=== PATIENT | female | born 1965 | race Hispanic/Latino ===

== ENCOUNTER 2017-01-03 15:10 | Emergency (ER) | payer OTHER ==
[2017-01-03 15:26] VITALS: BP 126/81; PULSE 81; RESP 20; TEMP 98.1; O2SAT 99
[2017-01-03] MEDS ORDERED: Albuterol-Ipratrop 3 mg / 0.5 (3 ml) UD INH STA ×2 (15:48)
[2017-01-03] MEDS ORDERED: Albuterol-Ipratrop 3 mg / 0.5 (3 ml) UD ONE (15:57)
--- NOTE | 2017-01-03 16:34 | RAD ---
HISTORY: cough, wheezing COMPARISON: No prior. TECHNIQUE: Chest PA and lateral FINDINGS: LUNGS: No active pulmonary disease. PLEURA: No significant pleural effusion identified. No pneumothorax apparent. CARDIOVASCULAR: Normal. OSSEOUS STRUCTURES: Dextroscoliosis of the thoracic spine is noted. VISUALIZED UPPER ABDOMEN: Normal. OTHER FINDINGS: None. IMPRESSION: No evidence of pneumonia.
--- NOTE | 2017-01-03 17:04 | ED PDOC ---
HPI: SOB/CHF/COPD Time Seen by Provider: 01/03/17 15:39 Chief Complaint (Nursing): Shortness Of Breath Chief Complaint (Provider): Cough, dry without fever History Per: Patient History/Exam Limitations: no limitations Onset/Duration Of Symptoms: Days Current Symptoms Are (Timing): Still Present Context: No chest pain Current Respiratory Medications: None Additional Complaint(s): Pt states she had similar in the past and was given antibiotics and steroids. Pt reports back side effects from the steroids. Past Medical History Reviewed: Historical Data, Nursing Documentation, Vital Signs Vital Signs: Last Vital Signs Temp 98.1 F 01/03/17 15:21 Pulse 81 01/03/17 15:21 Resp 20 01/03/17 15:44 BP 126/81 01/03/17 15:21 Pulse Ox 99 01/03/17 15:21 - Medical History PMH: Anxiety, Bronchitis, Depression - Surgical History Surgical History: No Surg Hx - Family History Family History: States: No Known Family Hx - Living Arrangements Living Arrangements: With Family - Social History Current smoker - smoking cessation education provided: No Ex-Smoker (has not smoked in the last 12 months): Yes - Immunization History Hx Tetanus Toxoid Vaccination: No Hx Influenza Vaccination: No Hx Pneumococcal Vaccination: No - Home Medications Home Medications: Ambulatory Orders Medication Instructions Recorded Albuterol 0.083% [Albuterol 0.083% 2.5 mg IH QID PRN #20 01/03/17 Inhal Joaquina (2.5 mg/3 ml) UD] Azithromycin 250 mg PO DAILY #6 tab 01/03/17 - Allergies Allergies/Adverse Reactions: Allergies Allergy/AdvReac Type Severity Reaction Status Date / Time No Known Allergies Allergy Verified 01/03/17 15:16 Review of Systems ROS Statement: Except As Marked, All Systems Reviewed And Found Negative Constitutional: Negative for: Fever, Chills Respiratory: Positive for: Cough, Shortness of Breath (When coughing ) Physical Exam - Reviewed Nursing Documentation Reviewed: Yes Vital Signs Reviewed: Yes - Physical Exam Appears: Positive for: Well, Non-toxic, No Acute Distress Head Exam: Positive for: ATRAUMATIC, NORMAL INSPECTION, NORMOCEPHALIC Skin: Positive for: Normal Color, Warm, DRY Eye Exam: Positive for: Normal appearance ENT: Positive for: Normal ENT Inspection Neck: Positive for: Normal, Painless ROM Cardiovascular/Chest: Positive for: Regular Rate, Rhythm Respiratory: Positive for: Wheezing (Diffuse ). Negative for: Normal Breath Sounds, Accessory Muscle Use, Respiratory Distress Gastrointestinal/Abdominal: Positive for: Normal Exam, Bowel Sounds, Soft Back: Positive for: Normal Inspection Extremity: Positive for: Normal ROM Neurologic/Psych: Positive for: Alert, Oriented - ECG O2 Sat by Pulse Oximetry: 99 Medical Decision Making Medical Decision Making: CXR - Normal. Disposition - Clinical Impression Clinical Impression: Acute bronchitis - Patient ED Disposition Is Patient to be Admitted: No Counseled Patient/Family Regarding: Diagnosis, Need For Followup, Rx Given - Disposition Referrals: [facility] [Outside] Disposition: Routine/Home Disposition Time: 17:04 Condition: GOOD Prescriptions: Albuterol 0.083% [Albuterol 0.083% Inhal Joaquina (2.5 mg/3 ml) UD] 2.5 mg IH QID PRN #20 PRN Reason: Shortness Of Breath Azithromycin 250 mg PO DAILY #6 tab Instructions: Acute Bronchitis (ED)
== END 2017-01-03 17:34 | disposition home or self-care (01) ==
LOC: H.ER 15:10
DX: J20.9 Acute bronchitis, unspecified (principal); Z87.891 Personal history of nicotine dependence

== ENCOUNTER 2017-01-08 12:15 | Emergency (ER) | payer OTHER ==
[2017-01-08] MEDS ORDERED: Albuterol-Ipratrop 3 mg / 0.5 (3 ml) UD INH STA (13:12)
[2017-01-08] MEDS ORDERED: Albuterol-Ipratrop 3 mg / 0.5 (3 ml) UD ONE (13:21)
--- NOTE | 2017-01-08 14:14 | ED PDOC ---
HPI: General Adult Time Seen by Provider: 01/08/17 12:40 Chief Complaint (Nursing): Shortness Of Breath History Per: Patient Additional Complaint(s): Pt. states for the past week she's had cough and chest tightness. States that she was seen here earlier this week and was dx as having acute bronchitis and prescribed Z-pack and albuterol neb tx which has not helped. Denies fever, hemoptysis, palpitations, sick contacts, recent travel. Of note, during last ED visit she had a CXR done which was negative. Pt. is concerned she may have pneumonia as her of pneumonia 4 months ago. Past Medical History Reviewed: Historical Data, Nursing Documentation, Vital Signs Vital Signs: Last Vital Signs Temp 97.2 F L 01/08/17 12:31 Pulse 76 01/08/17 12:31 Resp 18 01/08/17 12:31 BP 133/80 01/08/17 12:31 Pulse Ox 99 01/08/17 12:31 - Medical History PMH: Anxiety, Bronchitis, Depression - Family History Family History: States: No Known Family Hx - Immunization History Hx Tetanus Toxoid Vaccination: No Hx Influenza Vaccination: No Hx Pneumococcal Vaccination: No - Home Medications Home Medications: Ambulatory Orders Medication Instructions Recorded Albuterol 0.083% [Albuterol 0.083% 2.5 mg IH QID PRN #20 01/03/17 Inhal Joaquina (2.5 mg/3 ml) UD] Azithromycin 250 mg PO DAILY #6 tab 01/03/17 Albuterol HFA [Ventolin HFA 90 2 puff IH [id number] PRN #90 puff 01/08/17 mcg/actuation (8 g)] Benzonatate [Tessalon Perle] 100 mg PO Q8 PRN #30 capsule 01/08/17 predniSONE [Prednisone] 40 mg PO DAILY #8 tab 01/08/17 - Allergies Allergies/Adverse Reactions: Allergies Allergy/AdvReac Type Severity Reaction Status Date / Time No Known Allergies Allergy Verified 01/08/17 12:51 Review of Systems ROS Statement: Except As Marked, All Systems Reviewed And Found Negative Respiratory: Positive for: Cough, Wheezing Physical Exam - Reviewed Nursing Documentation Reviewed: Yes Vital Signs Reviewed: Yes - Physical Exam Appears: Positive for: Well, Non-toxic, No Acute Distress Head Exam: Positive for: ATRAUMATIC, NORMAL INSPECTION, NORMOCEPHALIC Skin: Positive for: Normal Color, Warm. Negative for: Rash Eye Exam: Positive for: EOMI, Normal appearance, PERRL ENT: Positive for: Normal ENT Inspection Neck: Positive for: Normal, Painless ROM Cardiovascular/Chest: Positive for: Regular Rate, Rhythm Respiratory: Positive for: Wheezing (b/l prolonged expiratory wheezing) Gastrointestinal/Abdominal: Positive for: Normal Exam, Bowel Sounds, Soft. Negative for: Tenderness Back: Positive for: Normal Inspection Extremity: Positive for: Normal ROM Neurologic/Psych: Positive for: Alert, Oriented - ECG O2 Sat by Pulse Oximetry: 99 - Progress ED Course And Treament: DuoNeb x 3, prednisone 40mg PO, xanax 0.5mg ordered. Re-evaluation Time: 14:15 (Lungs clear b/l. Initial peak flow 150 after nebs peak flow is 350) Condition: Re-examined, Improved Disposition - Clinical Impression Clinical Impression: Asthmatic bronchitis - Patient ED Disposition Is Patient to be Admitted: No - Disposition Referrals: [facility] [Outside] [facility] [Outside] Disposition: Routine/Home Disposition Time: 14:16 Condition: IMPROVED Prescriptions: Albuterol HFA [Ventolin HFA 90 mcg/actuation (8 g)] 2 puff IH [id number] PRN #90 puff PRN Reason: Cough Benzonatate [Tessalon Perle] 100 mg PO Q8 PRN #30 capsule PRN Reason: Cough predniSONE [Prednisone] 40 mg PO DAILY #8 tab Instructions: Bronchospasm (ED)
[2017-01-08 14:28] VITALS: BP 130/77; PULSE 80; RESP 19; TEMP 97.6; O2SAT 100
== END 2017-01-08 14:33 | disposition home or self-care (01) ==
LOC: H.ER 12:15
DX: J98.01 Acute bronchospasm (principal)